=== PATIENT | male | born 1945 | race Caucasian/White ===

== ENCOUNTER 2023-06-18 19:37 | Emergency (ER) | payer BC, MEDICAID ==
[~2023-06-18] VITALS: Ht 167.6 cm; Wt 84.0 kg
[~2023-06-18 19:37] MED LIST: ASPI-1160 PO; BENA20TA77 PO; GEMF600T PO
[2023-06-18 20:03] VITALS: BP 137/71; PULSE 119; RESP 16; O2SAT 97
[2023-06-18 20:59] LABS: CHLORIDE 111 mEq/L (98-107); HEMATOCRIT. 39.4 % (42.0-52.0); HEMOGLOBIN. 13.1 g/dL (14.0-18.0); INDEX HEMOLYSI 1 (1-3); INDEX ICTERIC 1 (1-4); INDEX LIPEMIC 1 (1-3); MEAN CORPUSCULAR HEMOGLOBIN 28.9 pg (28.0-32.0); MEAN CORPUSCULAR HGB CONC 33.4 g/dL (31.0-37.0); MEAN CORPUSCULAR VOLUME 86.6 fL (80.0-94.0); MEAN PLATELET VOLUME 9.2 fl (7.4-10.4); PLATELET 163 x1000/uL (130-400); POTASSIUM 4.1 mEq/L (3.5-5.1); RED BLOOD CELL COUNT 4.55 mill/uL (4.7-6.1); RED CELL DISTRIBUTION WIDTH 14.5 % (11.6-14.6); SODIUM 137 mEq/L (136-145); WHITE BLOOD COUNT 8.2 x1000/uL (4.5-11.0)
[2023-06-18 21:12] LABS: ALANINE AMINOTRANSFERASE 110 IU/L (13-61); ALBUMIN 3.6 g/dL (3.4-5.0); ASPARTATE AMINOTRANSFERASE 155 IU/L (15-37); BILIRUBIN TOTAL 1.4 mg/dL (0.1-1.0); CALCIUM 8.5 mg/dL (8.5-10.1); CARBON DIOXIDE 19 mEq/L (21-32); GLUCOSE 169 mg/dL (70-105); PROTEIN TOTAL 7.8 g/dL (6.0-8.3); TROPONIN I HIGH SENSITIVITY 24 ng/L (<78); UREA NITROGEN BLOOD 15 mg/dL (7-21)
[2023-06-18 21:13] LABS: DIFFERENTIAL COMMENT 1
[2023-06-18 21:54] LABS: PLATELET ESTIMATE NORMAL
== END 2023-06-18 22:17 | disposition left against medical advice (07) ==
LOC: ER 19:37
DX: R10.13 Epigastric pain (principal); Z53.21 Procedure and treatment not carried out due to patient leaving prior to being seen by health care provider
CPT/HCPCS: 36415; 80053; 84484; 85025; 93005; 99281